=== PATIENT | male | born 1985 | race Two or more races ===

== ENCOUNTER 2024-03-12 02:46 | Emergency (ER) | payer SELFPAY ==
[~2024-03-12] VITALS: Ht 177.8 cm; Wt 90.7 kg
[2024-03-12 02:48] VITALS: TEMP 98.8
[2024-03-12 03:00] VITALS: BP 117/65; O2SAT 96
== END 2024-03-12 07:22 | disposition left against medical advice (07) ==
LOC: ER 02:55
DX: F10.129 Alcohol abuse with intoxication, unspecified (principal); R41.82 Altered mental status, unspecified; R51.9 Headache, unspecified; Y90.8 Blood alcohol level of 240 mg/100 ml or more
CPT/HCPCS: 36415; 70450-TC; 82962-TC; G0480